=== PATIENT | male | born 1970 | race Hispanic/Latino ===

== ENCOUNTER 2017-01-30 13:45 | Emergency (ER) | payer OTHER ==
[2017-01-30 14:02] VITALS: BMI 25.9
[2017-01-30 14:03] VITALS: RESP 18; O2SAT 98
--- NOTE | 2017-01-30 14:47 | C.PDOC ---
History Of Present Illness 46 year old male who presents to the ER with a complaint of left foot pain for past 2 months that has worsened over the last few days, with associated swelling to the 2nd toe. Patient reports he has difficulty ambulating and notes having mild improvement with NSAIDS. Denies injury, trauma, or fever. 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.), Pneumonia (2013, 2014) - [facility] Procedures NON-INVASIVE MECHANICAL VENTILATION (04/18/14) Family History: States: Unknown Family Hx - Social History Hx Tobacco Use: No Hx Alcohol Use: No Hx Substance Use: No (''Clean for 60 days'') - Immunization History Hx Tetanus Toxoid Vaccination: No Hx Influenza Vaccination: No Hx Pneumococcal Vaccination: No Review Of Systems Constitutional: Negative for: Fever Musculoskeletal: Positive for: Foot Pain Skin: Positive for: Other (Swelling) Neurological: Negative for: Weakness, Numbness Physical Exam - Physical Exam Appears: Non-toxic Skin: Normal Color, Warm, Dry Head: Atraumatic, Normacephalic Oral Mucosa: Moist Extremity: Tenderness (to distal 2nd metatarsal at dorsal and plantar surfaces of left foot), Swelling (2nd left toe) Pulses: Left Dorsalis Pedis: Normal, Right Dorsalis Pedis: Normal Neurological/Psych: Oriented x3, Normal Speech, Normal Cognition ED Course And Treatment O2 Sat by Pulse Oximetry: 98 (Room air) Pulse Ox Interpretation: Normal - Other Rad Left foot x-ray X-Ray: Viewed By Me, Read By Radiologist Interpretation: FINDINGS: BONES: No acute displaced fracture. Calcaneal enthesophyte. JOINTS: No dislocation. SOFT TISSUES: Soft tissue swelling. No evidence of radiopaque foreign body. OTHER FINDINGS: None. IMPRESSION: Soft tissue swelling. No acute displaced fracture or dislocation identified. If symptoms persist, or if there is continued clinical concern, x-ray follow-up in 7-10 days should be considered. Medical Decision Making Medical Decision Making: Plan: Motrin Left foot x-ray 334 pm left foot xray neg; ortho shoe applied. d/c pt with nsaids and podiatry follow up. Disposition Counseled Patient/Family Regarding: Studies Performed, Diagnosis, Need For Followup - Disposition Referrals: Podiatry Clinic [Outside] Disposition: HOME/ ROUTINE Disposition Time: 15:34 Condition: STABLE Additional Instructions: Wear orthopedic shoe for comfort. Take 600 mg ibuprofen every 6 hours for pain. Follow up with Podiatry clinic. Forms: [facility] (Lao), General Discharge Instructions - Clinical Impression Clinical Impression: Foot pain, left - Scribe Statement The provider has reviewed the documentation as recorded by the Scribreal Sinclair All medical record entries made by the Ronenibreal were at my direction and personally dictated by me. I have reviewed the chart and agree that the record accurately reflects my personal performance of the history, physical exam, medical decision making, and the department course for this patient. I have also personally directed, reviewed, and agree with the discharge instructions and disposition.
--- NOTE | 2017-01-30 14:50 | RAD ---
PROCEDURE: Left Foot Radiographs. HISTORY: pin and swelling to sole of foot and 2nd toe COMPARISON: None available. FINDINGS: BONES: No acute displaced fracture. Calcaneal enthesophyte. JOINTS: No dislocation. SOFT TISSUES: Soft tissue swelling. No evidence of radiopaque foreign body. OTHER FINDINGS: None. IMPRESSION: Soft tissue swelling. No acute displaced fracture or dislocation identified. If symptoms persist, or if there is continued clinical concern, x-ray follow-up in 7-10 days should be considered.
[2017-01-30 15:40] VITALS: BP 120/72; PULSE 85; TEMP 98.2
== END 2017-01-30 15:41 | disposition home or self-care (01) ==
LOC: C.ER 13:45
DX: M79.672 Pain in left foot (principal)